=== PATIENT | female | born 1945 | race Caucasian/White ===

== ENCOUNTER 2016-07-31 18:50 | Emergency (ER) | payer BC ==
[~2016-07-31] VITALS: Wt 63.5 kg
[~2016-07-31 18:50] MED LIST: ADVAIR 100/501 E1 INH; BACTRIM DS 8001 TA1 PO; Bactrim 200 MG/30 ML PO; CIPROFLOXACIN500 MG PO; DOXYCYCLINE100 MG PO; LEVAQUIN250 MG PO; LISINOPRIL10 M1 PO; OXYGEN NAS; PREDNISONE10 MG PO; PROAIR HFA8.5 GM INH; PYRIDIUM100 MG PO; PYRIDIUM200 MG PO; ROBITUSSIN AC 110 ML PO
[2016-07-31 20:04] LABS: BILIRUBIN NEGATIVE (NEGATIVE); BLOOD TRACE-INTACT (NEGATIVE); CLARITY SL CLOUDY (CLEAR); COLOR YELLOW (YELLOW); GLUCOSE NEGATIVE (NEGATIVE); KETONE 1+ (NEGATIVE); LEUKO ESTERASE NEGATIVE (NEGATIVE); NITRITE NEGATIVE (NEGATIVE); PH 5.5 (5.0-9.0); PROTEIN NEGATIVE (NEGATIVE); SPECIFIC GRAVITY 1.025 (1.005-1.030); UROBILINOGEN 0.2 E.U./dl (0.2-1.0)
[2016-07-31 20:10] LABS: BACTERIA TRACE; MUCOUS TRACE
[2016-07-31 20:11] LABS: URINE REFLEX COMMENT NO (NO)
[2016-07-31] MEDS ORDERED: CYCLOBENZAPRINE5 M3 PO (21:18)
[2016-07-31] MEDS ORDERED: TYLENOL WITH CO1 TA1 PO (21:18)
[2016-07-31] MEDS ORDERED: ZOFRAN ODT4 MG SL (21:18)
== END 2016-07-31 21:23 | disposition home or self-care (01) ==
LOC: ED 18:50
PROVIDERS: Physician Assistant
DX: M54.5 Low back pain (principal); F17.200 Nicotine dependence, unspecified, uncomplicated; Z87.440 Personal history of urinary (tract) infections

== ENCOUNTER 2016-09-22 21:30 | Emergency (ER) | payer BC ==
[~2016-09-22] VITALS: Ht 167.6 cm; Wt 60.3 kg
[~2016-09-22 21:30] MED LIST changes: +CYCLOBENZAPRINE5 M3 PO; +TYLENOL WITH CO1 TA1 PO; +ZOFRAN ODT4 MG SL
[2016-09-22 22:10] LABS: BASO % 0.4 % (0.0-1.0); EOS # 0.1 10*3/uL (0.0-0.4); HEMATOCRIT 44.5 % (37.0-47.0); HEMOGLOBIN 14.8 g/dl (12.0-16.0); LYMPH # 1.9 10*3/uL (1.3-4.4); LYMPH % 37.4 % (27.0-41.0); MEAN CELL VOLUME 92.3 fl (81.0-99.0); MEAN CORPUSCULAR HGB 30.7 pg (27.0-31.0); MEAN CORPUSCULAR HGB CONC 33.3 g/dl (33.0-37.0); MONO # 0.8 10*3/uL (0.1-1.0); MONO % 15.4 % (3.0-9.0); NEUT # 2.3 10*3/uL (2.3-7.9); NEUT % 45.6 % (47.0-73.0); PLATELET COUNT AUTOMATED 267 10*3/uL (130-400); RED BLOOD COUNT 4.82 10*6/uL (4.10-5.10); RED CELL DISTRI WIDTH 13.1 % (0-14.5); WHITE BLOOD COUNT 5.1 10*3/uL (4.8-10.8)
[2016-09-22 22:21] LABS: INTERNATIONAL NORM RATIO 0.9 (2.0-3.5); PROTHROMBIN TIME 9.5 SECONDS (9.0-12.4)
[2016-09-22 22:25] LABS: ALBUMIN 3.6 gm/dl (3.1-4.5); ALKALINE PHOSPHATASE 78 U/L (45-117); BILIRUBIN, TOTAL 0.5 mg/dl (0.2-1.0); BUN 12 mg/dl (7-24); C-REACTIVE PROTEIN 0.42 MG/DL (0-0.3); CARBON DIOXIDE 28 mmol/L (21-32); CHLORIDE 105 mmol/L (98-107); EST GLOM FILT AFRICAN AMERICAN > 60 ml/min; GLUCOSE 86 mg/dL (65-99); MAGNESIUM 2.3 mg/dL (1.5-2.1); POTASSIUM 3.7 mmol/L (3.5-5.1); SGOT/AST 19 IU/L (3-35); SGPT/ALT 18 U/L (12-78); SODIUM 142 mmol/L (136-145); TOTAL PROTEIN 6.6 gm/dL (6.4-8.2); TROPONIN I < 0.015 ng/ml (<0.045)
== END 2016-09-22 23:00 | disposition home or self-care (01) ==
LOC: ED 21:30
PROVIDERS: Student in an Organized Health Care Education/Training Program
DX: M54.6 Pain in thoracic spine (principal); F17.200 Nicotine dependence, unspecified, uncomplicated; J44.9 Chronic obstructive pulmonary disease, unspecified; Z90.49 Acquired absence of other specified parts of digestive tract

== ENCOUNTER → 2016-10-04 | Outpatient (CLI) | payer BC | END | disposition home or self-care (01) | LOC: RAD 14:07 | DX: M75.01 Adhesive capsulitis of right shoulder (principal); M75.41 Impingement syndrome of right shoulder ==

== ENCOUNTER → 2016-11-25 | Outpatient (CLI) | payer BC | END | disposition home or self-care (01) | LOC: CT 10:00 | DX: J43.9 Emphysema, unspecified (principal); R91.1 Solitary pulmonary nodule; I25.10 Atherosclerotic heart disease of native coronary artery without angina pectoris ==

== ENCOUNTER → 2017-04-06 | Outpatient (CLI) | payer BC | END | disposition home or self-care (01) | LOC: LAB 12:03 | DX: J06.9 Acute upper respiratory infection, unspecified (principal) ==

== ENCOUNTER → 2017-08-22 | Outpatient (CLI) | payer BC | END | disposition home or self-care (01) | LOC: RAD 13:00 | DX: Z12.31 Encounter for screening mammogram for malignant neoplasm of breast (principal); M85.80 Other specified disorders of bone density and structure, unspecified site; R29.890 Loss of height; R63.4 Abnormal weight loss; Z78.0 Asymptomatic menopausal state ==

== ENCOUNTER 2017-09-21 23:35 | Emergency (ER) | payer BC ==
[~2017-09-21] VITALS: Ht 165.1 cm; Wt 61.7 kg
== END 2017-09-22 00:47 | disposition home or self-care (01) ==
LOC: ED 23:35
DX: H61.22 Impacted cerumen, left ear (principal); F17.200 Nicotine dependence, unspecified, uncomplicated; Z90.49 Acquired absence of other specified parts of digestive tract

== ENCOUNTER → 2018-01-10 | Day surgery (SDC) | payer BC ==
[~2018-01-10] VITALS: Ht 182.8 cm; Wt 86.2 kg
[~2018-01-10] MED LIST changes: +ADV 500/50 INH; -ADVAIR 100/501 E1 INH; +ALENDRONATE SOD70 M1 PO; +FLONASE ALLERG9.9 ML NAS; +MONTELUKAST SOD10 MG PO
--- NOTE | ~2018-01-10 | O ---
[place], [place] OPERATIVE NOTE NAME: MEEK ARRIETA UNIT #: [id number] ROOM: DOCTOR: DAVID JONAS MD BIRTHDATE: [birth year] DOS: 01/10/2018 GASTROENDOSCOPIC REPORT INDICATIONS: The patient has presented with suspected lesion in rectal pouch according to PET scan evaluation. The patient is an aggressive smoker. Also, she was suspected to have vocal cord lesion that ENT has ruled out in the past. ALLERGIES: No known medication. FAMILY HISTORY: Noncontributory. PAST SURGICAL HISTORY: Cholecystectomy. PAST MEDICAL HISTORY: COPD, asthma, and hypertension. SOCIAL HISTORY: Active smoker. PROCEDURE: Today's part of investigation of rectal mass suspected on PET scan is colonoscopy. PREMEDICATION: Propofol. SCOPE: Olympus folding colonoscope 10L video. REPORT: After putting the patient in left lateral position and application of lubricant to the scope, scope was introduced. Thereafter, under direct visualization, it was advanced through the length of colon without difficulty. Base of the cecum was explored. Appendiceal orifice was identified, ileocecal valve was defined. Diverticulosis of sigmoid colon was identified otherwise. Air was suctioned out from ascending colon and transverse colon back to the sigmoid and rectum. The rectum, multiple times, was scanned. There is no lesion, no mass, no polyp, no gross hemorrhoids. Air was suctioned out. The patient was extubated, tolerated the procedure well. IMPRESSION: Diverticulosis and no mass in rectal pouch or sigmoid or rectum. PLAN AND DISCUSSION: High-fiber diet. ACTIVITY: Ad davonte. DISCHARGE INSTRUCTIONS: The patient is advised again to abstain from smoking, I doubt if she will be compliant. Thank you very much indeed for your kind referral. [place], [place] OPERATIVE NOTE NAME: MEEK ARRIETA UNIT #: [id number] ROOM: DOCTOR: DAVID JONAS MD BIRTHDATE: [birth year] DAVID JONAS MD CM:OPRECORD:OPERATIVE NOTE [id number] ABRAHAM DONIS MD and ELISEO JONAS MD 01/10/18 1054 interface
[2018-01-10 07:30] VITALS: BP 119/76
[2018-01-10 09:15] VITALS: BP 98/43
[2018-01-10 09:30] VITALS: BP 108/50
[2018-01-10 09:45] VITALS: BP 119/53
== END | disposition home or self-care (01) ==
LOC: SDC 01-08 08:00
DX: K57.30 Diverticulosis of large intestine without perforation or abscess without bleeding (principal); I10 Essential (primary) hypertension; F17.210 Nicotine dependence, cigarettes, uncomplicated; J44.9 Chronic obstructive pulmonary disease, unspecified; Z90.49 Acquired absence of other specified parts of digestive tract; Z98.890 Other specified postprocedural states; Z79.899 Other long term (current) drug therapy

== ENCOUNTER 2019-07-18 17:46 | Emergency (ER) | payer MEDICARE ==
[~2019-07-18] VITALS: Ht 165.1 cm; Wt 61.7 kg
== END 2019-07-18 19:43 | disposition home or self-care (01) ==
LOC: ED 17:46
DX: S00.01XA Abrasion of scalp, initial encounter (principal); M54.2 Cervicalgia; R91.1 Solitary pulmonary nodule; Z79.899 Other long term (current) drug therapy; Z87.891 Personal history of nicotine dependence; W18.39XA Other fall on same level, initial encounter; Y93.89 Activity, other specified; Y92.89 Other specified places as the place of occurrence of the external cause; Y99.8 Other external cause status

== ENCOUNTER → 2019-09-04 | Outpatient (CLI) | payer OTHER | END | disposition home or self-care (01) | LOC: CT 10:55 | DX: J43.9 Emphysema, unspecified (principal); R91.1 Solitary pulmonary nodule ==

== ENCOUNTER 2020-02-14 13:45 | Emergency (ER) | payer OTHER ==
[~2020-02-14] VITALS: Ht 165.1 cm; Wt 54.4 kg
== END 2020-02-14 17:03 | disposition home or self-care (01) ==
LOC: ED 13:45
DX: K59.00 Constipation, unspecified (principal); Z79.899 Other long term (current) drug therapy

== ENCOUNTER → 2020-06-23 | Outpatient (CLI) | payer OTHER | END | disposition home or self-care (01) | LOC: RAD 11:14 | PROVIDERS: ATTEND Chiropractor | DX: M50.30 Other cervical disc degeneration, unspecified cervical region (principal); M48.02 Spinal stenosis, cervical region; M25.78 Osteophyte, vertebrae ==

== ENCOUNTER → 2020-07-20 | Outpatient (CLI) | payer OTHER | END | disposition home or self-care (01) | LOC: RAD 14:48 | PROVIDERS: ATTEND Chiropractor | DX: M50.321 Other cervical disc degeneration at C4-C5 level (principal); M48.02 Spinal stenosis, cervical region; M81.0 Age-related osteoporosis without current pathological fracture; I70.0 Atherosclerosis of aorta ==

== ENCOUNTER → 2021-12-16 | Outpatient (CLI) | payer OTHER | END | disposition home or self-care (01) | LOC: NM 12-15 07:00 | PROVIDERS: ATTEND Internal Medicine Nephrology | DX: E04.1 Nontoxic single thyroid nodule (principal); E04.9 Nontoxic goiter, unspecified ==

== ENCOUNTER → 2022-10-04 | Outpatient (CLI) | payer MEDICARE | END | disposition home or self-care (01) | LOC: RESCLI 13:46 | PROVIDERS: ATTEND Family Medicine | DX: J44.9 Chronic obstructive pulmonary disease, unspecified (principal); E05.90 Thyrotoxicosis, unspecified without thyrotoxic crisis or storm; I10 Essential (primary) hypertension; F17.210 Nicotine dependence, cigarettes, uncomplicated; D53.9 Nutritional anemia, unspecified; N39.0 Urinary tract infection, site not specified; Z98.890 Other specified postprocedural states; Z90.49 Acquired absence of other specified parts of digestive tract; Z79.899 Other long term (current) drug therapy ==

== ENCOUNTER → 2023-04-12 | Outpatient (CLI) | payer MEDICARE | END | disposition home or self-care (01) | LOC: MAMMO 00:39 | PROVIDERS: ATTEND Internal Medicine | DX: Z12.31 Encounter for screening mammogram for malignant neoplasm of breast (principal) ==

== ENCOUNTER → 2023-12-01 | Outpatient (CLI) | payer OTHER ==
[2023-12-01 13:10] LABS: BASO % 0.3 % (0.0-1.0); EOS % 0.1 % (1.0-4.0); HEMATOCRIT 42.4 % (37.0-47.0); LYMPH # 1.4 10*3/uL (1.3-4.4); LYMPH % 20.6 % (27.0-41.0); MEAN CELL VOLUME 95.3 fl (81.0-99.0); MEAN CORPUSCULAR HGB 31.2 pg (27.0-31.0); MEAN CORPUSCULAR HGB CONC 32.8 g/dl (33.0-37.0); MEAN PLATELET VOLUME 8.9 fl (9.6-12.3); MONO # 0.9 10*3/uL (0.1-1.0); MONO % 13.3 % (3.0-9.0); NEUT # 4.5 10*3/uL (2.3-7.9); NEUT % 65.4 % (47.0-73.0); PLATELET COUNT AUTOMATED 262 10*3/uL (130-400); RED BLOOD COUNT 4.45 10*6/uL (4.10-5.10); RED CELL DISTRI WIDTH 13.2 % (0-14.5); WHITE BLOOD COUNT 6.9 10*3/uL (4.8-10.8)
[2023-12-01 13:58] LABS: ALKALINE PHOSPHATASE 78 U/L (46-116); BUN 12 mg/dl (9-23); CHLORIDE 101 mmol/L (98-107); CHOLESTEROL 214 mg/dL (<200); LDL CHOLESTEROL 140 mg/dL (9-159); POTASSIUM 5.1 mmol/L (3.4-5.1); SGPT/ALT 15 U/L (5-49); TOTAL PROTEIN 6.9 gm/dL (6.0-8.0); TRIGLYCERIDES 124 mg/dl (<150)
== END | disposition home or self-care (01) ==
LOC: LAB 12:37
PROVIDERS: ATTEND Internal Medicine Nephrology
DX: J44.1 Chronic obstructive pulmonary disease with (acute) exacerbation (principal); E55.9 Vitamin D deficiency, unspecified; E05.90 Thyrotoxicosis, unspecified without thyrotoxic crisis or storm; E04.9 Nontoxic goiter, unspecified

== ENCOUNTER → 2024-01-19 | Outpatient (CLI) | payer OTHER | END | disposition home or self-care (01) | LOC: RAD 10:00 | PROVIDERS: ATTEND Student in an Organized Health Care Education/Training Program | DX: Z13.820 Encounter for screening for osteoporosis (principal); M81.0 Age-related osteoporosis without current pathological fracture; Z78.0 Asymptomatic menopausal state ==

== ENCOUNTER → 2024-03-25 | Outpatient (CLI) | payer OTHER | END | disposition home or self-care (01) | LOC: NM 02-07 03:40 | PROVIDERS: ATTEND Family Medicine | DX: E04.1 Nontoxic single thyroid nodule (principal) ==

== ENCOUNTER → 2024-07-19 | Outpatient (CLI) | payer OTHER ==
[2024-07-19 13:14] LABS: VITAMIN D, 25-HYDROXY 31.4 ng/mL (30-100)
[2024-07-19 13:48] LABS: FREE T4 1.11 ng/dl (0.89-1.76)
== END | disposition home or self-care (01) ==
LOC: LAB 12:22
PROVIDERS: Student in an Organized Health Care Education/Training Program; ATTEND Internal Medicine Endocrinology, Diabetes & Metabolism
DX: E05.90 Thyrotoxicosis, unspecified without thyrotoxic crisis or storm (principal); M81.0 Age-related osteoporosis without current pathological fracture

== ENCOUNTER 2024-09-11 12:35 | Emergency (ER) | payer OTHER ==
[~2024-09-11] VITALS: Ht 165.1 cm; Wt 50.8 kg
[~2024-09-11 12:35] MED LIST changes: +ADVAIR 250/501 EA INH; +BACTRIM 400-801 EACH PO; +ERTAPENEM1 GM IV; +METHIMAZOLE10 MG PO; +METOPROLOL TART50 M1 PO; +OMEPRAZOLE40 MG PO; +STOOL SOFTENER100 M3 PO
[2024-09-11] MEDS ORDERED: PREDNISONE20 M1 PO (15:43)
== END 2024-09-11 15:57 | disposition home or self-care (01) ==
LOC: ED 12:35
DX: M54.31 Sciatica, right side (principal); M25.551 Pain in right hip; M19.90 Unspecified osteoarthritis, unspecified site; M81.0 Age-related osteoporosis without current pathological fracture; Z79.899 Other long term (current) drug therapy; J44.9 Chronic obstructive pulmonary disease, unspecified; Z87.891 Personal history of nicotine dependence

== ENCOUNTER → 2025-01-16 | Outpatient (CLI) | payer OTHER ==
[~2025-01-16] MED LIST changes: +ANUSOL-HC25 MG R; +COLACE100 MG PO; +LEVOFLOXACIN750 M2 PO; +MIRALAX POWDER17 G1 PO; +PREDNISONE20 M1 PO
[2025-01-16 15:06] LABS: FREE T4 1.19 ng/dl (0.89-1.76)
== END | disposition home or self-care (01) ==
LOC: LAB 13:26
PROVIDERS: Student in an Organized Health Care Education/Training Program; ATTEND Internal Medicine Endocrinology, Diabetes & Metabolism
DX: E05.20 Thyrotoxicosis with toxic multinodular goiter without thyrotoxic crisis or storm (principal)

== ENCOUNTER 2025-02-05 10:46 | Emergency (ER) | payer OTHER ==
[~2025-02-05] VITALS: Wt 52.2 kg
[2025-02-05] MEDS ORDERED: Ondansetron Hydrochloride 4 MG/2 ML VIAL IV ONE ×2 (11:00→15:20)
[2025-02-05] MEDS ORDERED: Albuterol Sulf/Ipratropium 3 ML VIAL NEB ONE (11:00)
[2025-02-05 11:16] LABS: BASO # 0.0 10*3/uL (0.0-0.1); BASO % 0.2 % (0.0-1.0); EOS # 0.0 10*3/uL (0.0-0.4); EOS % 0.2 % (1.0-4.0); MEAN CELL VOLUME 92.5 fl (81.0-99.0); MEAN CORPUSCULAR HGB 30.0 pg (27.0-31.0); MEAN PLATELET VOLUME 8.4 fl (9.6-12.3); MONO # 0.7 10*3/uL (0.1-1.0); MONO % 14.9 % (3.0-9.0); NEUT # 2.8 10*3/uL (2.3-7.9); NEUT % 63.5 % (47.0-73.0); NUCLEATED RED BLOOD CELL 0.0 % (0.0-0.0); NUCLEATED RED BLOOD CELL 0.0 10*3/uL (0.0-0.0); PLATELET COUNT AUTOMATED 274 10*3/uL (130-400); RED CELL DISTRI WIDTH 13.2 % (0-14.5)
[2025-02-05 11:34] LABS: BUN 18 mg/dl (9-23)
== END 2025-02-05 15:25 | disposition short-term general hospital (02) ==
LOC: ED 10:46
PROVIDERS: Emergency Medicine
DX: S22.31XA Fracture of one rib, right side, initial encounter for closed fracture (principal); J93.9 Pneumothorax, unspecified; I10 Essential (primary) hypertension; F41.9 Anxiety disorder, unspecified; F32.A Depression, unspecified; J44.9 Chronic obstructive pulmonary disease, unspecified; F17.210 Nicotine dependence, cigarettes, uncomplicated; Z90.49 Acquired absence of other specified parts of digestive tract; W19.XXXA Unspecified fall, initial encounter; Y93.89 Activity, other specified; Y92.89 Other specified places as the place of occurrence of the external cause; Y99.8 Other external cause status